=== PATIENT | male | born 1940 | race African-American/Black ===

== ENCOUNTER → 2017-01-03 | Emergency (ER) | payer MEDICARE, OTHER ==
[~2017-01-03] VITALS: Ht 182.9 cm; Wt 86.2 kg
[~2017-01-03] MED LIST: ACETAMINOPHEN-1 EAC1 ORAL; ANTIVERT25 MG ORAL; ASPIRIN81 M3 PO; CRESTOR20 MG PO; FOLIC ACID1 MG ORAL; IMDUR30 MG ORAL; INH300 MG ORAL; Ketorolac 60mg Inj IM ONE; LOTENSIN20 MG ORAL; NAMENDA10 MG ORAL; NITROSTAT0.4 M2 SL; Norco 10mg/325mg tab ORAL ONE; OMEPRAZOLE20 M2 ORAL; OMEPRAZOLE40 M1 ORAL; REMERON15 MG ORAL; TENORMIN25 MG ORAL; VICODIN 5-3001 EACH ORAL; VITAMIN B650 M1 GT; VITAMIN D-32000 UNI1 PO
--- NOTE | 2017-01-03 17:29 | Emergency Room Report ---
History of Present Illness General Chief Complaint: Back Pain-No Injury Source: Patient, Medical Record, EMS Present Illness HPI Patient presents with complaints of low back pain Patient has been dealing with back pain for many years has had outpatient workup including MRI patient has a back specialist Dr. Douglas and was just recently a few days ago released from a rehabilitation facility Patient walked to grocery store Experienced acute cramping in the lower back and had to sit down 911 was contacted And patient presents for further eval Denies any fall or trauma denies any loss of control of bowel or urination denies any incontinence Denies any saddle paresthesia Pain is 5/10 localized across the lower back Allergies: Coded Allergies: PHENOBARBITAL (Unverified Allergy, Unknown, 11/03/14) Patient History Past Medical History: see triage record Pertinent Family History: none Reviewed Nursing Documentation: PMH: Agreed, PSxH: Agreed Nursing Documentation-PMH Past Medical History: No History, Except For Hx Cardiac Problems: Yes - 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 Hx Hypertension: Yes Hx COPD: No - LOWER BACK PAIN, ARHTRITIS Hx Cancer: No Hx Gastrointestinal Problems: Yes - Indigestion Hx Neurological Problems: No Hx Dementia: Yes - On Aricept Review of Systems All Other Systems: negative except mentioned in HPI Physical Exam Vital Signs Date Time Temp Pulse Resp B/P Pulse Ox O2 Delivery O2 Flow Rate FiO2 01/03/17 17:16 97.9 110 16 105/38 100 Room Air Sp02 EP Interpretation: reviewed, normal General Appearance: well appearing, no apparent distress Head: normocephalic, atraumatic Eyes: bilateral eye EOMI, bilateral eye PERRL ENT: hearing grossly normal, normal pharynx, TMs + canals normal, uvula midline Neck: full range of motion, supple, no meningismus, no bony tend Respiratory: lungs clear, normal breath sounds, no rhonchi, no respiratory distress, no retraction, no accessory muscle use Cardiovascular #1: normal peripheral pulses, regular rate, rhythm, no edema, no gallop, no JVD, no murmur Gastrointestinal: normal bowel sounds, non tender, soft, no mass, no organomegaly, non-distended, no guarding, no hernia, no pulsatile mass, no rebound Genitourinary: no CVA tenderness Musculoskeletal: other - Mild discomfort and fullness is palpated paraspinal L3 -4-5, no midline step-offs patient has appropriate musculoskeletal movement of both lower extremities, Neurologic: oriented x3, responsive, 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, motor strength/ tone normal, sensory intact Psychiatric: mood/affect normal Skin: normal color, no rash, warm/dry, palpation normal Lymphatic: normal inspection, no adenopathy Medical Decision Making Diagnostic Impression: Primary Impression: Back pain ER Course Given the patient's age and presenting complaint multiple differentials were considered Including but not limited to neurological, neurovascular pathology Patient however has a benign examination and evaluation He is very specific about the type of pain I did not feel that further imaging was required patient is ambulatory and appears well here in the emergency room Stable for continued close outpatient followup Please note that the patient also has a wristbands from a recent rehabilitation facility, from which he states he was released one to 2 days ago Last Vital Signs Date Time Temp Pulse Resp B/P Pulse Ox O2 Delivery O2 Flow Rate FiO2 01/03/17 17:16 97.9 110 16 105/38 100 Room Air Status: improved Disposition: HOME, SELF-CARE Condition: Improved Additional Instructions: Patient is provided with the discharge instructions notified to follow up with primary doctor in the next 2-3 days otherwise return to the er with any worsening symptoms. SHAILESH BUSH D.O. Jan 03, 2017 17:29
[2017-01-03 17:41] VITALS: BP 105/38
[2017-01-03 18:04] VITALS: BP 105/38
== END | disposition home or self-care (01) ==
LOC: EDUNIT# 17:07 → EDBD 17:10 → EMR 17:45
DX: M54.5 Low back pain (principal); I10 Essential (primary) hypertension; F03.90 Unspecified dementia, unspecified severity, without behavioral disturbance, psychotic disturbance, mood disturbance, and anxiety; Z79.899 Other long term (current) drug therapy
CPT/HCPCS: 96372; 99283

== ENCOUNTER 2017-10-19 15:55 | Emergency (ER) | payer MEDICARE, OTHER ==
[~2017-10-19] VITALS: Ht 182.9 cm; Wt 81.6 kg
[~2017-10-19 15:55] MED LIST changes: -Ketorolac 60mg Inj IM ONE; -Norco 10mg/325mg tab ORAL ONE
[2017-10-19 18:04] VITALS: BP 112/62
--- NOTE | 2017-10-19 18:58 | Emergency Room Report ---
History of Present Illness General Chief Complaint: General Complaint Source: Patient Present Illness HPI 77-year-old male, presenting with one week of intermittent ear ringing. Patient denies any headache blurry vision nausea vomiting hearing loss. Denies any overdose of aspirin. 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 Hx Hypertension: Yes Hx COPD: No - LOWER BACK PAIN, ARHTRITIS Hx Diabetes: Yes Hx Cancer: No Hx Gastrointestinal Problems: Yes - Indigestion Hx Neurological Problems: No Hx Dementia: Yes - On Aricept Review of Systems All Other Systems: negative except mentioned in HPI Physical Exam Vital Signs Date Time Temp Pulse Resp B/P (MAP) Pulse Ox O2 Delivery O2 Flow Rate FiO2 10/19/17 15:48 88 18 103/66 98 10/19/17 18:04 Room Air Sp02 EP Interpretation: reviewed, normal General Appearance: normal inspection, well appearing, no apparent distress, alert, GCS 15, non-toxic Head: normocephalic, atraumatic Eyes: bilateral eye normal inspection, bilateral eye PERRL, bilateral eye EOMI ENT: normal ENT inspection, hearing grossly normal, normal pharynx, normal voice, TMs + canals normal, moist mucus membranes Neck: normal inspection, full range of motion, supple Respiratory: normal inspection, lungs clear, normal breath sounds, no respiratory distress, no retraction, no wheezing, speaking full sentences, chest symmetrical Cardiovascular #1: normal inspection, regular rate, rhythm, no edema, normal capillary refill Cardiovascular #2: 2+ radial (R), 2+ radial (L) Gastrointestinal: normal inspection, non tender, soft, non-distended, no guarding Musculoskeletal: normal inspection, back normal, normal range of motion, non- tender Neurologic: normal inspection, alert, oriented x3, responsive, 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, motor strength/tone normal, sensory intact, normal gait, speech normal Psychiatric: normal inspection, judgement/insight normal, memory normal Skin: normal inspection, normal color, no rash, warm/dry, well hydrated, normal turgor Medical Decision Making Diagnostic Impression: Primary Impression: Tinnitus of both ears ER Course 77-year-old male with bilateral intermittent tinnitus DDX: possibly related to auditorily vestibular system, at this time patient is completely neurologically intact and experiencing no symptoms Denies any current tinnitus Plan: Observe ER course: Patient has remained stable during ED stay. No symptoms Disposition: Patient is to be discharged to home. Patient is instructed to follow up with ENT or neurologist within 3 days. Also instructed to followup with in one week Strict return precautions discussed with patient such as fever, chills, worsening/severe pain, headache, blurry vision, worsening tinnitus, nausea, vomiting, which may indicate severe illness. Patient verbalizes understanding and agrees with plan. Please note that this Emergency Department Report was dictated using [employer] process head miller technology software, occasionally this can lead to erroneous entry secondary to interpretation by the dictation equipment Last Vital Signs Date Time Temp Pulse Resp B/P (MAP) Pulse Ox O2 Delivery O2 Flow Rate FiO2 10/19/17 18:04 78 16 112/62 99 Room Air Disposition: HOME, SELF-CARE Condition: Stable Referrals: NOT CHOSEN IPA/MD,REFERRING (PCP) Patient Instructions: Tinnitus Additional Instructions: PLEASE FOLLOW UP WITH YOUR DOCTOR IN 4 DAYS WITHOUT FAIL Danish Olvera M.D. Oct 19, 2017 18:58
== END 2017-10-19 18:09 | disposition home or self-care (01) ==
LOC: EDBD 15:55 → EMR 16:14
DX: H93.13 Tinnitus, bilateral (principal); I10 Essential (primary) hypertension; E11.9 Type 2 diabetes mellitus without complications; F03.90 Unspecified dementia, unspecified severity, without behavioral disturbance, psychotic disturbance, mood disturbance, and anxiety
CPT/HCPCS: 99282